=== PATIENT | female | born 1990 | race African-American/Black ===

== ENCOUNTER 2017-01-04 09:33 | Emergency (ER) | payer OTHER ==
[~2017-01-04] VITALS: Ht 177.8 cm; Wt 136.1 kg
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
--- NOTE | 2017-01-04 10:26 | RAD ---
Indication chest pain. PA and lateral views of the chest were obtained. No prior imaging of the chest is available. The heart and pulmonary vessels appear normal. The lungs are clear. Bony structures appear grossly intact. IMPRESSION: Normal study
[2017-01-04 10:37] VITALS: BP 130/72
--- NOTE | 2017-01-04 10:51 | EKG ---
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
== END 2017-01-04 10:39 | disposition home or self-care (01) ==
LOC: ER 09:33
DX: R07.89 Other chest pain (principal)
CPT/HCPCS: 71020; 81025; 84703; 93005; 99284-25

== ENCOUNTER 2017-01-17 11:55 | Emergency (ER) | payer SELFPAY ==
[~2017-01-17] VITALS: Ht 177.8 cm; Wt 131.5 kg
[2017-01-17 12:03] VITALS: BP 138/67
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
== END 2017-01-17 13:13 | disposition home or self-care (01) ==
LOC: ER 11:55
DX: M25.561 Pain in right knee (principal); V49.88XA Car occupant (driver) (passenger) injured in other specified transport accidents, initial encounter; Y93.89 Activity, other specified; Y99.8 Other external cause status; Y92.488 Other paved roadways as the place of occurrence of the external cause
CPT/HCPCS: 99281

== ENCOUNTER 2017-02-14 12:27 | Emergency (ER) | payer SELFPAY ==
[~2017-02-14] VITALS: Ht 177.8 cm; Wt 142.5 kg
[2017-02-14 12:56] VITALS: BP 136/58
--- NOTE | 2017-02-14 13:13 | ED.ADGEN ---
Past Medical History Past Medical History: No Pertinent History Past Surgical History: Alcohol Use: None Drug Use: None Adult General Chief Complaint Chief Complaint: ABDOMINAL PAIN HPI HPI Patient is a 26-year-old, G5, P2, Ab3 female presents with right lower pelvic, abdominal wall pain since just today. Pain is rated moderate described as sharp is worse with palpation and movement. Patient's last menstrual period was approximately 6 weeks ago. She reports negative home last week. Denies hematuria dysuria, urinary frequency urgency and hematuria. No flank pain. No nausea vomiting or diarrhea. No prior abdominal surgeries. Review of Systems Review of Systems Review of symptoms as per history of present illness. All other review symptoms are negative. Allergies Allergies Allergies Coded Allergies Type Severity Reaction Last Updated Verified No Known Drug Allergies 05/28/16 No Physical Exam Physical Exam Constitutional: Well developed, well nourished, no acute distress, non-toxic appearance. HENT: Normocephalic, atraumatic, bilateral external ears normal, oropharynx moist, no oral exudates, nose normal. Eyes: PERRLA, EOMI, conjunctiva normal. Neck: Normal range of motion. Cardiovascular:Heart rate regular rhythm, no murmur. Lungs & Thorax: Bilateral breath sounds clear to auscultation. Abdomen: Bowel sounds normal, soft, right lower quadrant/lateral abdominal wall pain, tenderness reproducing with palpation. No rebound rigidity or guarding. Obesity compromising evaluation. Skin: Warm, dry. Back: No tenderness, no CVA tenderness. Extremities: No tenderness. Neurologic: Alert and oriented X 3, normal motor function, normal sensory function, no focal deficits noted. Psychologic: Affect normal, judgement normal, mood normal. Current Patient Data Vital Signs Vital Signs Date Time Temp Pulse Resp B/P (MAP) Pulse Ox O2 Delivery O2 Flow Rate FiO2 02/14/17 12:56 98.1 99 18 136/58 (84) 100 Room Air 98.1 Lab Values Laboratory Tests Test 02/14/17 12:07 02/14/17 13:00 02/14/17 13:15 POC Urine HCG, Qualitative Hcg positive (Negative) Urine Collection Type Unknown Urine Color Yellow Urine Clarity Clear Urine pH 6.0 Urine Specific Larsen 1.025 Urine Protein Negative mg/dL (NEG-TRACE) Urine Glucose (UA) Negative mg/dL (NEG) Urine Ketones (Stick) Negative mg/dL (NEG) Urine Blood Negative (NEG) Urine Nitrite Negative (NEG) Urine Bilirubin Negative (NEG) Urine Urobilinogen Dipstick 1.0 mg/dL (0.2 mg/dL) Urine Leukocyte Esterase Trace (NEG) Urine RBC 0 /HPF (0-2) Urine WBC 1-4 /HPF (0-4) Urine Squamous Epithelial Cells Many /LPF Urine Bacteria Few /HPF (0-FEW) Urine Mucus Marked /LPF White Blood Count 9.5 x10^3/uL (4.0-11.0) Red Blood Count 4.95 x10^6/uL (3.50-5.40) Hemoglobin 9.7 g/dL (12.0-15.5) L Hematocrit 31.5 % (36.0-47.0) L Mean Corpuscular Volume 64 fL (79-100) L Mean Corpuscular Hemoglobin 20 pg (25-35) L Mean Corpuscular Hemoglobin Concent 31 g/dL (31-37) Red Cell Distribution Width 17.1 % (11.5-14.5) H Platelet Count 323 x10^3/uL (140-400) Neutrophils (%) (Auto) 67 % (31-73) Lymphocytes (%) (Auto) 26 % (24-48) Monocytes (%) (Auto) 6 % (0-9) Eosinophils (%) (Auto) 1 % (0-3) Basophils (%) (Auto) 1 % (0-3) Neutrophils # (Auto) 6.4 x10^3uL (1.8-7.7) Lymphocytes # (Auto) 2.4 x10^3/uL (1.0-4.8) Monocytes # (Auto) 0.5 x10^3/uL (0.0-1.1) Eosinophils # (Auto) 0.1 x10^3/uL (0.0-0.7) Basophils # (Auto) 0.1 x10^3/uL (0.0-0.2) Platelet Estimate Adequate (ADEQUATE) Giant Platelets Polychromasia Slight Hypochromasia Mod Anisocytosis Slight Microcytosis Marked Maternal Serum HCG Beta Subunit 191 mIU/mL (0-6) H Sodium Level 139 mmol/L (136-145) Potassium Level 3.5 mmol/L (3.5-5.1) Chloride Level 105 mmol/L (98-107) Carbon Dioxide Level 24 mmol/L (21-32) Anion Gap 10 (6-14) Blood Urea Nitrogen 8 mg/dL (7-20) Creatinine 0.8 mg/dL (0.6-1.0) Estimated GFR (Cockcroft-Gault) 103.3 BUN/Creatinine Ratio 10 (6-20) Glucose Level 79 mg/dL (70-99) Calcium Level 9.1 mg/dL (8.5-10.1) Total Bilirubin 0.2 mg/dL (0.2-1.0) Aspartate Amino Transferase (AST) 23 U/L (15-37) Alanine Aminotransferase (ALT) 24 U/L (14-59) Alkaline Phosphatase 92 U/L (46-116) C-Reactive Protein, Quantitative 19.4 mg/L (0-3.3) H Total Protein 7.6 g/dL (6.4-8.2) Albumin 3.6 g/dL (3.4-5.0) Albumin/Globulin Ratio 0.9 (1.0-1.7) L Laboratory Tests 02/14/17 13:15 Laboratory Tests 02/14/17 13:15 Microbiology 02/14/17 Wet Prep - Final, Complete EKG EKG [] Radiology/Procedures Radiology/Procedures [E ultrasound less than 14 weeks, no IUP identified, left ovarian mass/cyst identified.] Course & Med Decision Making Course & Med Decision Making Pertinent Labs and Imaging studies reviewed. (See chart for details) [Patient's symptoms fully resolved while in the emergency department. Incidental note of bacterial vaginosis. Prescription for clindamycin given. I discussed with the patient possibility of an early IUP versus ectopic versus pelvic inflammatory disease, versus early appendicitis. Given patient's improvement, no further imaging studies are warranted at this time. She is instructed to take medications follow-up with on-call OB were serially hCG Quant testing. Return precautions reviewed. Patient agrees to return to the emergency department should she have recurrence or worsening of symptoms.] Dragon Disclaimer Dragon Disclaimer This electronic medical record was generated, in whole or in part, using a voice recognition dictation system. ELSA SWARTZ DO Feb 14, 2017 13:13
[2017-02-14 13:22] LABS: BILIRUBIN,URINE NEGATIVE (NEG); GLUCOSE,URINE NEGATIVE (NEG); NITRITE,URINE NEGATIVE (NEG); PROTEIN,URINE NEGATIVE (NEG-TRACE)
[2017-02-14 13:23] LABS: BASO # 0.1 x10^3/uL (0.0-0.2); BASO % 1 % (0-3); EOS % 1 % (0-3); HEMATOCRIT 31.5 % (36.0-47.0); HEMOGLOBIN 9.7 g/dL (12.0-15.5); LYMPH # 2.4 x10^3/uL (1.0-4.8); LYMPH % 26 % (24-48); MEAN CORPUSCULAR HEMOGLOBIN 20 pg (25-35); MEAN CORPUSCULAR HGB CONC 31 g/dL (31-37); MEAN CORPUSCULAR VOLUME 64 fL (79-100); MONO % 6 % (0-9); NEUT % 67 % (31-73); PLATELET COUNT 323 x10^3/uL (140-400); RED BLOOD COUNT 4.95 x10^6/uL (3.50-5.40); RED CELL DISTRIBUTION WIDTH 17.1 % (11.5-14.5); WHITE BLOOD COUNT 9.5 x10^3/uL (4.0-11.0)
[2017-02-14 13:35] LABS: CALCIUM 9.1 mg/dL (8.5-10.1); CREATININE 0.8 mg/dL (0.6-1.0); GFR 103.3; POTASSIUM 3.5 mmol/L (3.5-5.1)
[2017-02-14 13:39] LABS: ALBUMIN 3.6 g/dL (3.4-5.0); ALBUMIN/GLOBULIN RATIO 0.9 (1.0-1.7); C-REACTIVE PROTEIN 19.4 mg/L (0-3.3); TOTAL BILIRUBIN 0.2 mg/dL (0.2-1.0); TOTAL PROTEIN 7.6 g/dL (6.4-8.2)
[2017-02-14 13:50] LABS: RBC,URINE 0 /HPF (0-2)
[2017-02-14 13:51] LABS: BACTERIA,URINE FEW /HPF (0-FEW); SQUAMOUS EPITHELIAL CELL,UR MANY /LPF
--- NOTE | 2017-02-14 13:53 | RAD ---
EXAM: Obstetric ultrasound. HISTORY: Right pelvic pain in . COMPARISON: None. FINDINGS: Sonographic evaluation of the pelvis was performed transabdominally and transvaginally. The uterus is anteverted and measures 8.5 x 6.5 x 5.9 cm. No endometrial gestational sac is identified. The endometrial stripe measures 2.1 cm. There is no significant free fluid. The left ovary measures 5.0 x 3.0 x 2.8 cm. It contains a complicated thick rimmed follicle measuring 2.5 x 2.2 cm. There is no associated hyperperfusion. The right ovary measures 4.1 x 2.2 x 1.7 cm. IMPRESSION: 1. No intrauterine gestation is identified. Correlate with quantitative beta hCG to determine if this is appropriate. Recommend ongoing follow-up to exclude nonviable gestation or ectopic . 2. A complicated follicle in the left ovary suggests a corpus luteum.
[2017-02-14 14:37] LABS: PLT ESTIMATE ADEQUATE (ADEQUATE)
[2017-02-14 14:38] LABS: ANISOCYTOSIS SLIGHT; HYPOCHROMIA MOD; MICROCYTOSIS MARKED; POLYCHROMASIA SLIGHT
== END 2017-02-14 17:59 | disposition home or self-care (01) ==
LOC: ER 12:27
DX: O26.891 Other specified pregnancy related conditions, first trimester (principal); R10.2 Pelvic and perineal pain; R10.31 Right lower quadrant pain
CPT/HCPCS: 36415; 76801; 76817; 80053; 81001; 81025; 84702; 85007; 85027; 86140; 87086; 87491; 87591; 99285; Q0111

== ENCOUNTER 2021-03-11 19:40 | Emergency (ER) | payer OTHER ==
[~2021-03-11] VITALS: Ht 177.8 cm; Wt 145.0 kg
[2021-03-11 22:22] VITALS: BP 138/73
--- NOTE | 2021-03-11 22:47 | ED.ADGEN ---
Past Medical History Past Medical History: No Pertinent History Past Surgical History: No Surgical History, Smoking Status: Never Smoker Alcohol Use: None Drug Use: None General Adult EDM: Chief Complaint: ANKLE PROBLEM HPI: HPI: Patient is a 30 year old female coming in for pain to her right knee and ankle. Patient states 1 day ago she slipped on some water and fell into some shelves hitting her knee on the lateral side and inverting her right ankle. Patient has been to walk with pain. Status of swelling in her ankle. No other complaints did not hit her upper extremities or head. States she otherwise did well. Has not gotten her Covid vaccine Review of Systems: Review of Systems: All other systems within normal limits except for as noted in the HPI Allergies: Allergies: Allergies Coded Allergies Type Severity Reaction Last Updated Verified No Known Drug Allergies 05/28/16 No Physical Exam: PE: Constitutional: Well developed, well nourished, no acute distress, non-toxic appearance. [] HENT: Normocephalic, atraumatic, bilateral external ears normal, nose normal. [] Eyes: PERRLA, conjunctiva normal, no discharge. [] Neck: No rigidity, supple, no stridor. [] Cardiovascular: Regular rate and rhythm, brisk cap refill [] Lungs & Thorax: Non labored symmetric respirations, no tachypnea or respiratory distress [] Abdomen: Soft, nondistended. Skin: Warm, dry, no erythema, no rash. [] Back: Unremarkable Extremities: No deformities, range of motion grossly intact, no lower extremity edema. Right knee exam: Tenderness to palpation on the lateral aspect of knee, no appreciable effusion, no varus, valgus, anterior, or posterior laxity. Right ankle. Tenderness over lateral malleolus, swelling over lateral malleolus and lateral aspect of foot. Achilles tendon intact, no tenderness to palpation of fifth metatarsal [] Neurologic: Alert and oriented X 3, no focal deficits noted. [] Psychologic: Affect normal, judgement normal, mood normal. [] Current Patient Data: Labs: Laboratory Tests Test 03/11/21 20:23 POC Urine HCG, Qualitative Hcg negative (Negative) Vital Signs: Vital Signs Date Time Temp Pulse Resp B/P (MAP) Pulse Ox O2 Delivery O2 Flow Rate FiO2 03/11/21 20:30 98.3 86 16 173/100 (84) 100 Room Air 98.3 EKG: EKG: [] Heart Score: C/O Chest Pain: No Risk Factors: Risk Factors: DM, Current or recent (<one month) smoker, HTN, HLP, family history of CAD, obesity. Risk Scores: Score 0 - 3: 2.5% MACE over next 6 weeks - Discharge Home Score 4 - 6: 20.3% MACE over next 6 weeks - Admit for Clinical Observation Score 7 - 10: 72.7% MACE over next 6 weeks - Early Invasive Strategies Radiology/Procedures: Radiology/Procedures: X-rays not yet read by radiologist, no apparent injury per EP interpretation. Discussed with patient that we will follow-up for results and call her if there are any pertinent findings. [] Course & Med Decision Making: Course & Med Decision Making Pertinent Labs and Imaging studies reviewed. (See chart for details) [] Dragon Disclaimer: Dragon Disclaimer: This electronic medical record was generated, in whole or in part, using a voice recognition dictation system. Departure Departure Impression: Primary Impression: Contusion of right knee Additional Impression: Right ankle sprain Disposition: HOME / SELF CARE / HOMELESS Condition: STABLE Referrals: NO PCP (PCP) Patient Instructions: Elastic Bandage and RICE Problem Qualifiers VAMSHI NELSON MD Mar 11, 2021 22:46
--- NOTE | 2021-03-11 23:41 | RAD ---
EXAM: AP and lateral views of the right knee. DATE: 03/11/2021 9:26 PM INDICATION: Reason: fall, lateral pain / Spl. Instructions: / History: COMPARISON: No Prior FINDINGS: Lateral views in near full flexion imaging evaluation. Within these constraints: No acute fracture or dislocation. No joint effusion. Joint spaces are preserved without significant degenerative/proliferative change. IMPRESSION: No acute fracture or dislocation. Electronically signed by: Geovanny Carranza MD (03/11/2021 11:39 PM) DONYA
--- NOTE | 2021-03-11 23:42 | RAD ---
EXAM: 3 views of the right ankle DATE: 03/11/2021 9:26 PM INDICATION: Reason: fall, lateral pain / Spl. Instructions: / History: COMPARISON: No Prior FINDINGS: No acute fracture or dislocation. Ankle mortise is congruent. Talar dome is intact. Joint spaces are preserved without significant degenerative/proliferative change. Soft tissue swelling about the right ankle. Small posterior calcaneal enthesophyte. IMPRESSION: 1. No acute fracture or dislocation. 2. Soft tissue swelling about the right ankle. Electronically signed by: Geovanny Carranza MD (03/11/2021 11:40 PM) DONYA
== END 2021-03-11 22:55 | disposition home or self-care (01) ==
LOC: ER 19:40
DX: S93.401A Sprain of unspecified ligament of right ankle, initial encounter (principal); S80.01XA Contusion of right knee, initial encounter; W01.198A Fall on same level from slipping, tripping and stumbling with subsequent striking against other object, initial encounter; Y93.89 Activity, other specified; Y92.89 Other specified places as the place of occurrence of the external cause; Y99.8 Other external cause status
CPT/HCPCS: 73560; 73610; 81025; 99285-25

== ENCOUNTER 2021-11-21 00:03 | Emergency (ER) | payer OTHER ==
[2021-11-21] MEDS ORDERED: CYCL5TAB PO (10:06)
[2021-11-21] MEDS ORDERED: IBUP-1007 PO (10:06)
== END 2021-11-21 10:35 | disposition home or self-care (01) ==
LOC: ER 00:03
DX: M54.9 Dorsalgia, unspecified (principal); M25.511 Pain in right shoulder; R22.2 Localized swelling, mass and lump, trunk; Z53.21 Procedure and treatment not carried out due to patient leaving prior to being seen by health care provider

== ENCOUNTER 2021-11-21 09:00 | Emergency (ER) | payer OTHER ==
[~2021-11-21] VITALS: Ht 177.8 cm; Wt 163.0 kg
[2021-11-21 09:10] VITALS: BP 157/96
--- NOTE | 2021-11-21 09:21 | PHYS DOC ---
Past Medical History Past Medical History: No Pertinent History Past Surgical History: No Surgical History, Smoking Status: Never Smoker Alcohol Use: None Drug Use: None General Adult EDM: Chief Complaint: UPPER EXTREMITY PAIN HPI: HPI: Patient is a 31 year old female who presents with 2 days of mid cervical pain with movement of the right arm or movement of her upper body that will send sharp shooting pains through to her mid chest and into the right arm. She denies injury, shortness of breath, chest pain, recent surgery, recent travel, hormone use, smoking, palpitations, abdominal pain, nausea, vomiting, diarrhea, fever, cough, focal weakness, numbness or tingling, headache, dizziness, syncope, fall. She states movement makes the pain worse. She rates her pain 5 out of 10. She states been taking ibuprofen at home for the pain. She has a history of . Review of Systems: Review of Systems: Constitutional: Denies fever or chills. [] Eyes: Denies change in visual acuity. [] HENT: Denies nasal congestion or sore throat. [] Respiratory: Denies cough or shortness of breath. [] Cardiovascular: + Intermittent mid back pain dating into mid chest or denies edema. [] GI: Denies abdominal pain, nausea, vomiting, bloody stools or diarrhea. [] : Denies dysuria. [] Musculoskeletal: + Midline cervical back pain or denies joint pain. + Sharp shooting into right arm [] Integument: Denies rash. [] Neurologic: Denies headache, focal weakness or sensory changes. [] Endocrine: Denies polyuria or polydipsia. [] Lymphatic: Denies swollen glands. [] Psychiatric: Denies depression or anxiety. [] Heart Score: C/O Chest Pain: No HEART Score for Chest Pain: HEART Score for Chest Pain Response (Comments) Value History Slighlty/Non-Suspicious 0 ECG Normal 0 Age < 45 0 Risk Factors 1 or 2 Risk Factors 1 Troponin < Normal Limit 0 Total 1 Risk Factors: Risk Factors: DM, Current or recent (<one month) smoker, HTN, HLP, family history of CAD, obesity. Risk Scores: Score 0 - 3: 2.5% MACE over next 6 weeks - Discharge Home Score 4 - 6: 20.3% MACE over next 6 weeks - Admit for Clinical Observation Score 7 - 10: 72.7% MACE over next 6 weeks - Early Invasive Strategies Allergies: Allergies: Allergies Coded Allergies Type Severity Reaction Last Updated Verified No Known Drug Allergies 05/28/16 No Physical Exam: PE: Constitutional: Well developed, well nourished, no acute distress, non-toxic appearance. [] HENT: Normocephalic, atraumatic, bilateral external ears normal, oropharynx moist, no oral exudates, nose normal. [] Eyes: PERRLA, EOMI, conjunctiva normal, no discharge. [] Neck: Normal range of motion, no tenderness, supple, no stridor. [] Cardiovascular:Heart rate regular rhythm, no murmur [] Lungs & Thorax: Bilateral breath sounds clear to auscultation [] Abdomen: Bowel sounds normal, soft, no tenderness, no masses, no pulsatile masses. [] Skin: Warm, dry, no erythema, no rash. [] Back: Midline upper cervical tenderness, no CVA tenderness. [] Extremities: No tenderness, no cyanosis, no clubbing, ROM intact, no edema. [] Neurologic: Alert and oriented X 3, normal motor function, normal sensory function, no focal deficits noted. [] Psychologic: Affect normal, judgement normal, mood normal. [] EKG: EK and read by Dr. Cooper is sinus rhythm and no STEMI Radiology/Procedures: Radiology/Procedures: [] Impression: [][facility] [address] [place] [address] IMAGING REPORT Signed PATIENT: SINAN GUZMAN MACCOUNT: [id number] : 1990 LOCATION: ER AGE: 31 SEX: F EXAM STATUS: PRE ER ORD. PHYSICIAN: NEAL EUGENE APRN REASON: Back pain that shoots through to mid chest PROCEDURE: PORTABLE CHEST 1V AP chest. HISTORY: Back pain that shoots through 2 mid chest AP view was taken of the chest. Lungs are clear. Heart is normal in size. There is no effusion. Thoracic spine is poorly seen on the AP chest. IMPRESSION: 1. No acute chest disease. Electronically signed by: Kali Perez MD (11/21/2021 9:27 AM) [id number] DICTATED and SIGNED BY: KALI PEREZ MD DATE: 11/21/21 0926 [facility] [address] [place] [address] IMAGING REPORT Signed PATIENT: SINAN GUZMAN MACCOUNT: [id number] : 1990 LOCATION: ER AGE: 31 SEX: F EXAM STATUS: PRE ER ORD. PHYSICIAN: NEAL EUGENE APRN REASON: pain with movement with focal tenderness midline PROCEDURE: CT CERVICAL SPINE WO CONTRAST CT C-spine without contrast. HISTORY: Pain with movement, focal tenderness in the midline Axial CT images were obtained through the cervical spine. Sagittal and coronal reconstructed images were reviewed. There is no acute C-spine fracture. Upper aspect of the lungs are clear. A focal disc protrusion is not identified. Thyroid is homogeneous. Disc spaces are normal in height. There is no bony destructive process. Neural foramina are patent. IMPRESSION: 1. No C-spine fracture. 2. No focal disc protrusion or bony destructive lesion noted. PQRS Compliance Statement: One or more of the following individualized dose reduction techniques were utilized for this examination: 1. Automated exposure control 2. Adjustment of the mA and/or kV according to patient size 3. Use of iterative reconstruction technique Electronically signed by: Kali Perez MD (11/21/2021 9:57 AM) [id number] DICTATED and SIGNED BY: KALI PEREZ MD DATE: 11/21/21 0950 Course & Med Decision Making: Course & Med Decision Making Pertinent Labs and Imaging studies reviewed. (See chart for details) See HPI. Alert and oriented x4. Ambulatory steady gait. Skin pink warm and dry. No extremity tenderness or swelling. Lungs are clear in all lobes. PERC 0. Wells 0. Pain is reproducible with movement of the right arm. Radial pulse strong are present. Cap refill less than 2 seconds. No extremity edema. Vital signs are within normal limits. Upper cervical focal spiny tenderness. Sensations intact. Neurologically intact. Full strength and summer intern in all movements of extremities are equal with equal strength. Full range of motion of all joints and there is no joint swelling. No trauma. Chest x-ray is clear. EKG is normal sinus rhythm. Vital signs within normal limits. CT cervical spine shows no acute findings. Troponin negative. This is most likely a pinched nerve. [] [place] Disclaimer: [place] Disclaimer: This electronic medical record was generated, in whole or in part, using a voice recognition dictation system. Departure Departure Impression: Primary Impression: Cervical radiculopathy Disposition: HOME / SELF CARE / HOMELESS Condition: STABLE Referrals: NO PCP (PCP) Patient Instructions: Cervical Radiculopathy Additional Instructions: Follow up with primary care provider. Take medication as prescribed with food. Remember that muscle relaxers can make you sleepy, so don not drive, work, or operate machinery while on this medication. If you are suddenly unable to use your arm, have severe continuos chest pain, vomiting, or sever shortness of breath return tot he ED. Scripts Ibuprofen (IBUPROFEN) 600 Mg Tablet 600 MG PO PRN Q6HRS PRN for INFLAMMATION, #30 TAB Prov: NEAL EUGENE APRN 11/21/21 Cyclobenzaprine Hcl (CYCLOBENZAPRINE HCL) 5 Mg Tablet 1 TAB PO TID, #30 TAB Prov: NEAL EUGENE APRN 11/21/21 NEAL EUGENE APRN Nov 21, 2021 09:21
--- NOTE | 2021-11-21 09:29 | RAD ---
AP chest. HISTORY: Back pain that shoots through 2 mid chest AP view was taken of the chest. Lungs are clear. Heart is normal in size. There is no effusion. Thora cic spine is poorly seen on the AP chest. IMPRESSION: 1. No acute chest disease. Electronically signed by: Kali Perez MD (11/21/2021 9:27 AM) [id number]
--- NOTE | 2021-11-21 10:00 | RAD ---
CT C-spine without contrast. HISTORY: Pain with movement, focal tenderness in the midline Axial CT images were obtained through the cervical spine. Sagittal and coronal reconstructed images w ere reviewed. There is no acute C-spine fracture. Upper aspect of the lungs are clear. A focal disc p rotrusion is not identified. Thyroid is homogeneous. Disc spaces are normal in height. There is no [place]ck [place] destructive process. Neural foramina are patent. IMPRESSION: 1. No C-spine fracture. 2. No focal disc protrusion or bony destructive lesion noted. PQRS Compliance Statement: One or more of the following individualized dose reduction techniques were utilized for this examinat ion: 1. Automated exposure control 2. Adjustment of the mA and/or kV according to patient size 3. Use of iterative reconstruction technique Electronically signed by: Kali Perez MD (11/21/2021 9:57 AM) [id number]
[2021-11-21] MEDS ORDERED: CYCL5TAB PO (10:06)
[2021-11-21] MEDS ORDERED: IBUP-1007 PO (10:06)
--- NOTE | 2021-11-21 18:38 | EKG ---
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
== END 2021-11-21 10:35 | disposition home or self-care (01) ==
LOC: ER 09:00
DX: M54.12 Radiculopathy, cervical region (principal); R07.89 Other chest pain
CPT/HCPCS: 36415; 71045; 72125; 81025; 84484; 93005; 99285-25